=== PATIENT | female | born 1960 ===

== ENCOUNTER 2016-10-03 10:52 | Emergency (ER) | payer OTHER ==
[2016-10-03 10:52] VITALS: BMI 30.1
[2016-10-03 10:58] VITALS: BP 143/91; PULSE 86; RESP 16; TEMP 98.1; O2SAT 97
--- NOTE | 2016-10-03 11:11 | ED PDOC ---
Arrival/HPI - General Chief Complaint: Lower Extremity Problem/Injury Time Seen by Provider: 10/03/16 11:08 Historian: Patient - History of Present Illness Narrative History of Present Illness (Text): 10/03/16 11:30 56 year old female presents to the emergency department with knee pain for the past few months. She states she has undergone multiple imaging studies including MRI here November 2015. She states she is working on obtain insurance for surgical correction. She notes swelling which is intermittent and improves/ worsens. Today she says it is worse than usual causing difficulty walking. Patient ambulated to ER with cane. Denies new injuries or trauma. Denies fever or erythema. Time/Duration: > month Symptom Onset: Gradual Symptom Course: Intermittent Associated Symptoms (Text): None Past Medical History - Provider Review Nursing Documentation Reviewed: Yes - Infectious Disease Hx of Infectious Diseases: None - Tetanus Immunization Tetanus Immunization: Unknown - Cardiac Hx Hypertension: Yes - Pulmonary Hx Asthma: Yes - Neurological Hx Neurological Disorder: No - HEENT Hx HEENT Disorder: No - Renal Hx Renal Disorder: No - Endocrine/Metabolic Hx Endocrine Disorders: No - Hematological/Oncological Hx Blood Disorders: No - Integumentary Hx Dermatological Disorder: No - Musculoskeletal/Rheumatological Hx Arthritis: Yes Other/Comment: KNEE PAIN - Gastrointestinal Hx Gastrointestinal Disorders: No - Genitourinary/Gynecological Hx Genitourinary Disorders: No Other/Comment: ovarian cysts - Psychiatric Hx Psychophysiologic Disorder: Yes Hx Anxiety: Yes Hx Substance Use: No - Surgical History Hx Orthopedic Surgery: Yes (R SHOULDER) - Anesthesia Hx Anesthesia: No Hx Anesthesia Reactions: No Hx Malignant Hyperthermia: No - Suicidal Assessment Feels Threatened In Home Enviroment: No Family/Social History - Physician Review Nursing Documentation Reviewed: Yes Family/Social History: Unknown Family HX Smoking Status: Never Smoked Hx Alcohol Use: No Hx Substance Use: No Allergies/Home Meds Allergies/Adverse Reactions: Allergies No Known Allergies Allergy (Unverified 10/03/16 10:54) Home Medications: Home Meds Medication Instructions Recorded Confirmed Motrin 800 mg PO TID PRN 01/27/15 10/03/16 Lisinopril [Zestril] 10 mg PO DAILY 08/03/16 10/03/16 Review of Systems - Physician Review All systems were reviewed & negative as marked: Yes - Review of Systems Constitutional: absent: Fevers Musculoskeletal: Other (Knee pain) Neurological: absent: Headache, Dizziness Physical Exam - Physical Exam Narrative Physical Exam (Text): Constitutional: No acute distress. Musculoskeletal: Full range of motion of the knee. (+) Effusion. No warmth, no erythema. Vital Signs Reviewed: Yes Vital Signs Temp Pulse Resp BP Pulse Ox 10/03/16 10:55 98.1 F 86 16 143/91 H 97 Temperature: Afebrile Blood Pressure: Normal Pulse: Regular Respiratory Rate: Normal Appearance: Positive for: Well-Appearing, Non-Toxic, Comfortable Pain Distress: None Mental Status: Positive for: Alert and Oriented X 3 Medical Decision Making ED Course and Treatment: Impression: 56 year old female presents to the emergency department with knee pain for the past few months. Progress Notes: 10/03/16 11:20 Toradol IM administered. BRANDON wrap applied. Patient educated on elevation, ice, and rest. Will discharge home. Patient agrees to plan. Stable for discharge. Patient was instructed to follow up with physician/clinic in 1-2 days or return if symptoms worsen or new concerning symptoms arise. - Medication Orders Current Medication Orders: Discontinued Medications Ketorolac Tromethamine (Toradol) 15 mg IM STAT STA Stop: 10/03/16 11:13 Last Admin: 10/03/16 11:27 Dose: 15 mg - Scribe Statement The provider has reviewed the documentation as recorded by the Chery Astorga Provider Scribe Attestation: All medical record entries made by the Scribe were at my direction and personally dictated by me. I have reviewed the chart and agree that the record accurately reflects my personal performance of the history, physical exam, medical decision making, and the department course for this patient. I have also personally directed, reviewed, and agree with the discharge instructions and disposition. Disposition/Present on Arrival - Present on Arrival Any Indicators Present on Arrival: No History of DVT/PE: No History of Uncontrolled Diabetes: No Urinary Catheter: No History of Decub. Ulcer: No History Surgical Site Infection Following: None - Disposition Have Diagnosis and Disposition been Completed?: Yes Diagnosis: Knee pain Disposition: HOME/ ROUTINE Disposition Time: 11:10 Patient Plan: Discharge Condition: STABLE Discharge Instructions (ExitCare): Swollen Knee Joint (ED) Referrals: Mignon Hall APN-C [Advanced Practice Nurse] - Follow up with primary
== END 2016-10-03 11:29 | disposition home or self-care (01) ==
LOC: ED 10:52
DX: M25.562 Pain in left knee (principal); I10 Essential (primary) hypertension
CPT/HCPCS: 96372; 99282; J1885

== ENCOUNTER 2017-11-10 14:08 | Emergency (ER) | payer MEDICAID, OTHER ==
[2017-11-10 14:32] VITALS: BMI 28.3
[2017-11-10 14:33] VITALS: RESP 18; TEMP 98
[2017-11-10] MEDS ORDERED: Oxycodone/Acetaminophen 5/325 mg Tab PO STA (15:08)
--- NOTE | 2017-11-10 15:13 | ED PDOC ---
Arrival/HPI - General Chief Complaint: Upper Extremity Problem/Injury Time Seen by Provider: 11/10/17 15:05 Historian: Patient - History of Present Illness Narrative History of Present Illness (Text): 11/10/17 15:10 pt p/w + 2 weeks onset of waxing and waning right arm discomfort; pt states at times her pain is severe, > 8-9/10; pt states she has this shooting/electrical pain going down from her right neck region/down to her shoulders/to her right arm/hand/fingers; pt also has a history of carpal tunnel syndrome to right hand but felt the pain over the last 2 week over her right arm was worse; pt also expressed 1-2 episodes of right arm weakness during right arm shooting/ electrical pain episodes, pt states no slurr speech/vision changes, no facial changes, no other medical complaints; pt decided to come to emergency department today due to worsening pain/concern for possible TIA/stroke; pt states no fever/chills/sweats, no chest pain/shortness of breath/palpitations, no abd pain, no n/v, no urinary/bowel changes, no incontinence, no fall/trauma/ sick contact, no travel. pt is here for further eval pt's without other complaints. PCP: Dr Oliveira? pt is right hand dominate hx of dizziness/TIA Time/Duration: > week (2 weeks) Symptom Onset: Gradual Severity Level: Severe Activities at Onset: Rest Context: Home Past Medical History - Provider Review Nursing Documentation Reviewed: Yes - Travel History Have you recently traveled outside [place] w/in the past 3 mons?: No - Past History Past History: Non-Contributing - Infectious Disease Hx of Infectious Diseases: None - Tetanus Immunization Tetanus Immunization: Unknown - Reproductive Menopause: Yes Currently : No - Cardiac Hx Cardiac Disorders: Yes Hx Hypertension: Yes - Pulmonary Hx Respiratory Disorders: No - Neurological Hx Neurological Disorder: No - HEENT Hx HEENT Disorder: No - Renal Hx Renal Disorder: No - Endocrine/Metabolic Hx Endocrine Disorders: No - Hematological/Oncological Hx Blood Disorders: No - Integumentary Hx Dermatological Disorder: No - Musculoskeletal/Rheumatological Hx Musculoskeletal Disorders: Yes Hx Back Pain: Yes Other/Comment: KNEE PAIN. Carpal tunnel - Gastrointestinal Hx Gastrointestinal Disorders: Yes Hx Hemorrhoids: Yes - Genitourinary/Gynecological Hx Genitourinary Disorders: No - Psychiatric Hx Psychophysiologic Disorder: No Hx Substance Use: No - Surgical History Hx Tubal Ligation: Yes Other/Comment: RIGHT SHOULDER SURGERY - Anesthesia Hx Anesthesia: Yes Hx Anesthesia Reactions: No - Suicidal Assessment Feels Threatened In Home Enviroment: No Family/Social History - Physician Review Nursing Documentation Reviewed: Yes Family/Social History: No Known Family HX Smoking Status: Never Smoked Hx Alcohol Use: No Hx Substance Use: No Hx Substance Use Treatment: No Allergies/Home Meds Allergies/Adverse Reactions: Allergies No Known Allergies Allergy (Verified 03/14/17 08:12) Home Medications: Home Meds Medication Instructions Recorded Confirmed Lisinopril/Hydrochlorothiazide 1 tab PO DAILY 03/14/17 11/10/17 [Lisinopril-Hydrochlorothiazide 25 mg-20 mg] Pravastatin Sodium [Pravachol] 20 mg PO DAILY 03/14/17 11/10/17 Aspirin [Aspirin Chewable] 1 tab PO DAILY 11/10/17 11/10/17 Paradox-3S/Dha/Epa/Fish Oil [Fish 2 cap PO BID 11/10/17 11/10/17 Oil Paradox-3 Softgel] Review of Systems - Review of Systems Constitutional: Normal Eyes: Normal. absent: Vision Changes ENT: Normal. absent: Hearing Changes Respiratory: Normal. absent: SOB, Cough Cardiovascular: Normal. absent: Chest Pain Gastrointestinal: Normal. absent: Abdominal Pain, Nausea, Vomiting Genitourinary Female: Normal Musculoskeletal: Other (right neck pain, right arm pain, no trauma) Skin: Normal Neurological: Focal Weakness. absent: Dizziness, Gait Changes, Speech Changes, Facial Droop, Disequilibrium, Seizure Endocrine: Normal Hemo/Lymphatic: Normal Psychiatric: Normal Physical Exam - Physical Exam Narrative Physical Exam (Text): 11/10/17 1455 General: alert/awake, GCS = 15, oriented x 3, resting in bed, uncomfortable, cooperative, interactive; mild distress due to right arm pain Head: NC/AT EYE: PERRLA, EOMI, sclera anicteric, no nystagmus, no photophobia; visual field intact b/l Facial: WNL Oral: uvula/tongue are midline, no exudate/lesions, no drooling/stridor, no dysphonia; intact dentitions; moist oral mucosa NECK: intact ROM, no midline tenderness, no nuchal rigidity, no meningeal signs ; no step off Chest: CTA b/l, no w/r/r; no tachypenia, no accessory muscle use noted Cardiac: +S1, +S2, no m/r/r, no tachycardia Abdominal: +BS, soft/nd/nt, well nourished patient; no masses/rebound/guarding/ rigidity; no stern's sign, no mcburney's point tenderness Extremities: intact ROM, strength 5/5 grossly intact in all limbs, neurovasc intact b/l; + ambulatory; reflex +2/2; no pitting edema/swelling b/l; no Cricket' s sign b/l BACK: no step off, no midline tenderness, NO crepitus, no gross deformities noted; Intact ROM SKIN: cap refill < 1 sec, no ulcerations, no petechiae, no rashes NEURO: CNII-XII WNL, no facial asymmetries, no slurr speech, oriented x 3; F- Nose WNL NIH stroke scale ~ 0 Psych: normal insight, normal affect; follows command with ease Vital Signs Reviewed: Yes Vital Signs Temp Pulse Resp BP Pulse Ox 11/10/17 14:33 98.0 F 83 18 118/68 100 Temperature: Afebrile Blood Pressure: Normal Pulse: Regular Respiratory Rate: Normal Appearance: Positive for: Well-Appearing, Non-Toxic, Uncomfortable. No: Comfortable, Ill-Appearing, Unkept Pain Distress: Mild Mental Status: Positive for: Alert and Oriented X 3 - Systems Exam Head: Present: Atraumatic, Normocephalic Medical Decision Making ED Course and Treatment: 11/10/17 15:05 Impression: right arm pain x 2 weeks, no trauma i have consider all the differential diagnosis regarding pt's chief medical complaints/clinical findings, including but are not limited to: right arm pain x 2 weeks A/P: right arm pain x 2 weeks - ct - pain control - supportive care - observe/reevaluation 430pm pt is doing well, resting in bed comfortably pt is awaiting her diagnostic results 11/10/17 1655 vital signs remained stable NIH stroke scale ~ 0 pt remained comfortable pt is not in any distress pt is made aware of her medical results pt is encouraged no heavy lifting, no repetitive movements pt is encouraged outpt follow up pt will be discharged home Re-evaluation Time: 17:05 Reassessment Condition: Improved - RAD Interpretation Narrative RAD Interpretations (Text): 11/10/17 16:49 PROCEDURE: CT Cervical Spine without contrast HISTORY: R arm numb/tingling x 2 wks, hx of disc hernia/TIA COMPARISON: None available. TECHNIQUE: Axial computed tomography images were obtained of the cervical spine without the use of intravenous contrast. Coronal and sagittal reformatted images were created and reviewed. Radiation dose: Total exam DLP = 596 mGy-cm. This CT exam was performed using one or more of the following dose reduction techniques: Automated exposure control, adjustment of the mA and/or kV according to patient size, and/or use of iterative reconstruction technique. FINDINGS: VERTEBRAE: No fracture. Normal alignment. No destructive bony lesion. DISCS/SPINAL CANAL/NEURAL FORAMINA: No significant central canal or neural foraminal stenosis. Severe facet arthropathy on the left at C3-4. Severe foraminal stenosis. C4-5. Severe facet arthropathy on the left with severe foraminal stenosis. Left-sided uncovertebral osteophyte. C5-6 mild foraminal stenosis on the right. C6-7 is unremarkable. Right-sided facet arthropathy at C7-T1 with right-sided foraminal stenosis PARASPINAL SOFT TISSUES: Unremarkable. OTHER FINDINGS: None. IMPRESSION: Disc and facet degeneration with foraminal stenosis at multiple levels as described above. PROCEDURE: CT HEAD WITHOUT CONTRAST. HISTORY: hx of tia; 2 weeks right arm numb/tingling COMPARISON: 08/03/2016 TECHNIQUE: Axial computed tomography images were obtained through the head/brain without intravenous contrast. Radiation dose: Total exam DLP = 873 mGy-cm. This CT exam was performed using one or more of the following dose reduction techniques: Automated exposure control, adjustment of the mA and/or kV according to patient size, and/or use of iterative reconstruction technique. FINDINGS: HEMORRHAGE: No intracranial hemorrhage. BRAIN: No mass effect or edema. Chronic microvascular changes. VENTRICLES: Unremarkable. No hydrocephalus. CALVARIUM: Unremarkable. PARANASAL SINUSES: Unremarkable as visualized. No significant inflammatory changes. MASTOID AIR CELLS: Unremarkable as visualized. No inflammatory changes. OTHER FINDINGS: None. IMPRESSION: No acute findings Radiology Orders: 11/10/17 15:07 CERVICAL SPINE W/O CONTRAST [CT] Stat 11/10/17 15:08 HEAD W/O CONTRAST [CT] Stat Can Tender: Radiologist - Medication Orders Current Medication Orders: Discontinued Medications Diazepam (Valium) 5 mg PO ONCE ONE PRN Reason: Protocol Stop: 11/10/17 15:10 Last Admin: 11/10/17 15:26 Dose: 5 mg Ketorolac Tromethamine (Toradol) 30 mg IM STAT STA Stop: 11/10/17 15:09 Last Admin: 11/10/17 15:26 Dose: 30 mg Oxycodone/Acetaminophen (Percocet 5/325 Mg Tab) 1 tab PO STAT STA Stop: 11/10/17 15:09 Last Admin: 11/10/17 15:26 Dose: 1 tab Disposition/Present on Arrival - Present on Arrival Any Indicators Present on Arrival: No History of DVT/PE: No History of Uncontrolled Diabetes: No Urinary Catheter: No History of Decub. Ulcer: No History Surgical Site Infection Following: None - Disposition Have Diagnosis and Disposition been Completed?: Yes Diagnosis: Right arm pain, Cervical radiculopathy, Cervical herniated disc Disposition: HOME/ ROUTINE Disposition Time: 17:00 Patient Plan: Discharge Condition: STABLE Discharge Instructions (ExitCare): Radiculopathy, Herniated Disc (DC) Print Language: DANISH Additional Instructions: Make sure to see your doctor in 1-2 days DRINK PLENTY OF FLUIDS take your medications as prescribed AVOID heavy lifting/repetitive exercises RETURN TO ED IF worse pain, cant breath, persistent vomiting, high fever >101- 102 for hours, altered behavior, slurr speech, facial changes, focal weakness ( arm/leg or both), unable to urinate, heavy/persistent bleeding, passing out, chest pain, or other medical emergencies Prescriptions: diaZEpam [Valium] 5 mg PO TID PRN #10 tab PRN Reason: Muscle Spasm Ibuprofen [Motrin] 600 mg PO QID PRN #30 tab PRN Reason: Pain, Mild (1-3) oxyCODONE/Acetaminophen [Percocet 5/325 mg Tab] 1 ea PO TID PRN #10 tab PRN Reason: Pain, Moderate (4-7) Referrals: Huong Oliveira MD [Primary Care Provider] - Follow up with primary Dinora Thibodeaux MD [Staff Provider] - Follow up with primary Jean Rosa MD [Staff Provider] - Follow up with primary Forms: [employer] ([place]
--- NOTE | 2017-11-10 15:57 | CT ---
PROCEDURE: CT HEAD WITHOUT CONTRAST. HISTORY: hx of tia; 2 weeks right arm numb/tingling COMPARISON: 08/03/2016 TECHNIQUE: Axial computed tomography images were obtained through the head/brain without intravenous contrast. Radiation dose: Total exam DLP = 873 mGy-cm. This CT exam was performed using one or more of the following dose reduction techniques: Automated exposure control, adjustment of the mA and/or kV according to patient size, and/or use of iterative reconstruction technique. FINDINGS: HEMORRHAGE: No intracranial hemorrhage. BRAIN: No mass effect or edema. Chronic microvascular changes. VENTRICLES: Unremarkable. No hydrocephalus. CALVARIUM: Unremarkable. PARANASAL SINUSES: Unremarkable as visualized. No significant inflammatory changes. MASTOID AIR CELLS: Unremarkable as visualized. No inflammatory changes. OTHER FINDINGS: None. IMPRESSION: No acute findings
--- NOTE | 2017-11-10 16:03 | CT ---
PROCEDURE: CT Cervical Spine without contrast HISTORY: R arm numb/tingling x 2 wks, hx of disc hernia/TIA COMPARISON: None available. TECHNIQUE: Axial computed tomography images were obtained of the cervical spine without the use of intravenous contrast. Coronal and sagittal reformatted images were created and reviewed. Radiation dose: Total exam DLP = 596 mGy-cm. This CT exam was performed using one or more of the following dose reduction techniques: Automated exposure control, adjustment of the mA and/or kV according to patient size, and/or use of iterative reconstruction technique. FINDINGS: VERTEBRAE: No fracture. Normal alignment. No destructive bony lesion. DISCS/SPINAL CANAL/NEURAL FORAMINA: No significant central canal or neural foraminal stenosis. Severe facet arthropathy on the left at C3-4. Severe foraminal stenosis. C4-5. Severe facet arthropathy on the left with severe foraminal stenosis. Left-sided uncovertebral osteophyte. C5-6 mild foraminal stenosis on the right. C6-7 is unremarkable. Right-sided facet arthropathy at C7-T1 with right-sided foraminal stenosis PARASPINAL SOFT TISSUES: Unremarkable. OTHER FINDINGS: None. IMPRESSION: Disc and facet degeneration with foraminal stenosis at multiple levels as described above.
[2017-11-10 17:07] VITALS: BP 116/70; PULSE 62; O2SAT 99
== END 2017-11-10 17:09 | disposition home or self-care (01) ==
LOC: ED 14:08
DX: M54.12 Radiculopathy, cervical region (principal); M50.20 Other cervical disc displacement, unspecified cervical region; M79.601 Pain in right arm; I10 Essential (primary) hypertension
CPT/HCPCS: 70450; 72125; 96372; 99284; J1885

== ENCOUNTER 2017-12-01 17:07 | Emergency (ER) | payer OTHER ==
[2017-12-01 17:08] VITALS: BMI 28.3
--- NOTE | 2017-12-01 17:30 | ED PDOC ---
Arrival/HPI - General Time Seen by Provider: 12/01/17 17:11 Historian: Patient - History of Present Illness Narrative History of Present Illness (Text): 12/01/17 17:20 Patient is not in the ED room yet. 12/01/17 17:40 This 57 yo female presents to this with multiple complains. Patient stated she has been getting bruises for 2 days. She also noted left arm pain since yesterday. patient has been feeling fatigue. Patient denies sob, cp, abdominal pain, dizziness, fever, CAT, or abnormal gait. Time/Duration: Other (see hpi) Context: Home Past Medical History - Provider Review Nursing Documentation Reviewed: Yes - Past History Past History: Non-Contributing - Infectious Disease Hx of Infectious Diseases: None - Tetanus Immunization Tetanus Immunization: Unknown - Cardiac Hx Cardiac Disorders: Yes Hx Hypertension: Yes - Pulmonary Hx Respiratory Disorders: No - Neurological Hx Neurological Disorder: No - HEENT Hx HEENT Disorder: No - Renal Hx Renal Disorder: No - Endocrine/Metabolic Hx Endocrine Disorders: No - Hematological/Oncological Hx Blood Disorders: No - Integumentary Hx Dermatological Disorder: No - Musculoskeletal/Rheumatological Other/Comment: KNEE PAIN - Gastrointestinal Hx Gastrointestinal Disorders: Yes Hx Hemorrhoids: Yes - Genitourinary/Gynecological Hx Genitourinary Disorders: No - Psychiatric Hx Psychophysiologic Disorder: No Hx Substance Use: No - Surgical History Hx Tubal Ligation: Yes Other/Comment: RIGHT SHOULDER SURGERY - Anesthesia Hx Anesthesia: Yes Hx Anesthesia Reactions: No - Suicidal Assessment Feels Threatened In Home Enviroment: No Family/Social History - Physician Review Nursing Documentation Reviewed: Yes Family/Social History: Other (noncontributory) Smoking Status: Never Smoked Hx Alcohol Use: No Hx Substance Use: No Hx Substance Use Treatment: No Allergies/Home Meds Allergies/Adverse Reactions: Allergies No Known Allergies Allergy (Verified 12/01/17 17:37) Home Medications: Home Meds Medication Instructions Recorded Confirmed Lisinopril/Hydrochlorothiazide 1 tab PO DAILY 03/14/17 12/01/17 [Lisinopril-Hydrochlorothiazide 25 mg-20 mg] Pravastatin Sodium [Pravachol] 20 mg PO DAILY 03/14/17 12/01/17 Aspirin [Aspirin Chewable] 1 tab PO DAILY 11/10/17 12/01/17 [place]irth-3S/Dha/Epa/Fish Oil [Fish 2 cap PO BID 11/10/17 12/01/17 Oil [place]-3 Softgel] Review of Systems - Review of Systems Constitutional: Fatigue. absent: Weight Change, Fevers Eyes: Normal. absent: Vision Changes ENT: Normal. absent: Sore Throat Respiratory: Normal. absent: SOB, Cough, Sputum, Wheezing Cardiovascular: Normal. absent: Chest Pain, Palpitations, Edema, Calf Pain, EATON , Orthopnea, Syncope Gastrointestinal: Normal. absent: Abdominal Pain, Nausea, Vomiting Genitourinary Female: Normal. absent: Dysuria, Frequency, Hematuria Musculoskeletal: Other ((+) left arm pain (+) b/l UE brusies) Skin: Normal. absent: Rash Neurological: Normal. absent: Headache, Dizziness, Focal Weakness, Gait Changes Endocrine: Normal Hemo/Lymphatic: Normal Psychiatric: Normal Physical Exam Vital Signs Temp Pulse Resp BP Pulse Ox 12/01/17 17:37 98.1 F 75 17 136/88 100 Temperature: Afebrile Blood Pressure: Normal Pulse: Regular Respiratory Rate: Normal Appearance: Positive for: Well-Appearing, Non-Toxic, Comfortable Pain Distress: None Mental Status: Positive for: Alert and Oriented X 3 - Systems Exam Head: Present: Atraumatic, Normocephalic Pupils: Present: PERRL Extroacular Muscles: Present: EOMI Conjunctiva: Present: Normal Mouth: Present: Moist Mucous Membranes, Normal Lips, Normal Tounge, Normal Teeth , Other (No oropharyngeal lesion or petechia). No: Drooling, Trismus Pharnyx: Present: Normal. No: ERYTHEMA, EXUDATE, TONSILS ENLARGED Neck: Present: Normal Range of Motion, Trachea Midline. No: Meningeal Signs, MIDLINE TENDERNESS, Paraspinal Tenderness, Lymphadenopathy Respiratory/Chest: Present: Clear to Auscultation, Good Air Exchange. No: Respiratory Distress, Accessory Muscle Use, Wheezes, Retracting, Rhonchi, Tachypneic Cardiovascular: Present: Regular Rate and Rhythm, Normal S1, S2. No: Murmurs Abdomen: No: Tenderness, Distention, Peritoneal Signs, Rebound, Guarding Back: Present: Normal Inspection. No: CVA Tenderness, Midline Tenderness, Paraspinal Tenderness, Pain with Leg Raise Upper Extremity: Present: Normal ROM, NORMAL PULSES, Neurovascularly Intact, Other (one ecchymosis changes right and left arm. There is one ecchymosis right thigh. No tenderness. no erythema. No abscess. no swelling). No: Cyanosis, Edema, Tenderness, Swelling, Erythema, Capillary Refill < 2s Lower Extremity: Present: Normal Inspection. No: Edema Neurological: Present: GCS=15, CN II-XII Intact, Speech Normal, Motor Func Grossly Intact, Normal Sensory Function, Normal Cerebellar Funct, Gait Normal, Memory Normal Skin: Present: Warm, Dry, Normal Color. No: Rashes Psychiatric: Present: Alert, Oriented x 3, Normal Insight, Normal Concentration Medical Decision Making ED Course and Treatment: 12/01/17 20:30 Leaving Against Medical Advice (AMA): This patient is choosing to leave against medical advice. The EP has personally explained to the pt that choosing to do so may result in permanent bodily harm or . The EP discussed at great length that without further evaluation and monitoring there may be unforeseen circumstances and/or deterioration causing permanent bodily harm or as a result of their choice. The pt verbalized these risks back to the physician in laymans terms. The pt is alert, oriented, and shows the mental capacity to make clear decisions regarding the pts health care at this time. The pt continues to wish to leave against medical advice. In light of the pts decision to leave AMA, follow-up has been recommended and the pt is aware of the importance of following up as instructed. The pt has been advised that they should return to the ED immediately if they change their mind at any time, or if thier condition begins to change or worsen in any way. - Lab Interpretations Lab Results: 12/01/17 18:47 12/01/17 18:47 Lab Results 12/01/17 18:47: Urine Color Straw, Urine Appearance Clear, Urine pH 7.5, Ur Specific [place] 1.010, Urine Protein Negative, Urine Glucose (UA) Negative, Urine Ketones Negative, Urine Blood Negative, Urine Nitrate Negative, Urine Bilirubin Negative, Urine Urobilinogen 0.2, Ur Leukocyte Esterase Small H, Urine RBC Negative, Urine WBC 0 - 2, Ur Epithelial Cells 0 - 2, Urine Bacteria None 12/01/17 18:47: Sodium 143, Chloride 105, Potassium 3.9, Carbon Dioxide 28, Anion Gap 14, BUN 14, Creatinine 0.6 L, Est GFR ( Amer) > 60, Est GFR ( Non-Af Amer) > 60, Random Glucose 94, Calcium 9.4, Magnesium 2.1, Total Bilirubin 0.6, AST 26, ALT 33, Alkaline Phosphatase 64, Lactate Dehydrogenase 474, Total Creatine Kinase 140, Troponin I < 0.01, Total Protein 7.2, Albumin 4.0, Globulin 3.2, Albumin/Globulin Ratio 1.3 12/01/17 18:47: pO2 39, VBG pH 7.38, VBG pCO2 49.0, VBG HCO3 29.0 H, VBG Total CO2 30.5 H, VBG O2 Sat (Calc) 78.2 H, VBG Base Excess 3.0 H, VBG Potassium 3.8, Sodium 140.0, Chloride 107.0, Glucose 95, Lactate 0.9, FiO2 21.0, Venous Blood Potassium 3.8 12/01/17 18:47: PT 10.4, INR 0.91 L, APTT 26.9, D-Dimer, Quantitative < 200 12/01/17 18:47: WBC 5.4, RBC 4.06, Hgb 12.4, Hct 37.1, MCV 91.4, MCH 30.5, MCHC 33.4, RDW 12.1, Plt Count 319, MPV 9.5, Gran % 45.8 L, Lymph % (Auto) 43.9 H, [place] % (Auto) 8.6 H, Eos % (Auto) 1.5, Baso % (Auto) 0.2, Gran # 2.47, Lymph # ( Auto) 2.4, [place] # (Auto) 0.5, Eos # (Auto) 0.1, Baso # (Auto) 0.01 I have reviewed the lab results: Yes Interpretation: No clinic. lab abnormalty - RAD Interpretation Narrative RAD Interpretations (Text): 12/01/17 20:13 FINDINGS: LUNGS: No active pulmonary disease. PLEURA: No significant pleural effusion identified. No pneumothorax apparent. CARDIOVASCULAR: Cardiomediastinal silhouette stably enlarged. OSSEOUS STRUCTURES: Unchanged. VISUALIZED UPPER ABDOMEN: Normal. OTHER FINDINGS: None. IMPRESSION: No active disease. Radiology Orders: 12/01/17 17:47 CHEST TWO VIEWS (PA/LAT) [RAD] Stat Disposition/Present on Arrival - Present on Arrival Any Indicators Present on Arrival: No History of DVT/PE: No History of Uncontrolled Diabetes: No Urinary Catheter: No History Surgical Site Infection Following: None - Disposition Have Diagnosis and Disposition been Completed?: Yes Diagnosis: Chest pain Disposition: AGAINST MEDICAL ADVICE Disposition Time: 20:31 Discharge Instructions (ExitCare): Chest Pain (ED) Prescriptions: Cephalexin [cephalexin] 500 mg PO BID #10 cap Referrals: Huong Oliveira MD [Primary Care Provider] - Follow up with primary
[2017-12-01 17:43] VITALS: O2SAT 100
--- NOTE | 2017-12-01 18:30 | RAD ---
Date of service: 12/01/2017 HISTORY: cough COMPARISON: Chest radiograph dated 08/02/2016. TECHNIQUE: Chest PA and lateral FINDINGS: LUNGS: No active pulmonary disease. PLEURA: No significant pleural effusion identified. No pneumothorax apparent. CARDIOVASCULAR: Cardiomediastinal silhouette stably enlarged. OSSEOUS STRUCTURES: Unchanged. VISUALIZED UPPER ABDOMEN: Normal. OTHER FINDINGS: None. IMPRESSION: No active disease.
[2017-12-01 19:06] LABS: BASO # 0.01 K/mm3 (0.0-2.0); BASO % 0.2 % (0.0-3.0); EOS # 0.1 (0.0-0.7); EOS % 1.5 % (1.5-5.0); GRAN # 2.47 (1.4-6.5); GRAN % 45.8 % (50.0-68.0); HEMOGLOBIN 12.4 g/dL (12.0-16.0); LYMPH # 2.4 (1.2-3.4); LYMPH % 43.9 % (22.0-35.0); MEAN CELL VOLUME 91.4 fl (80.0-105.0); MEAN CORPUSCULAR HEMOGLOBIN 30.5 pg (25.0-35.0); MEAN CORPUSCULAR HGB CONC 33.4 g/dl (31.0-37.0); MEAN PLATELET VOLUME 9.5 fl (7.0-11.0); MONO # 0.5 (0.1-0.6); MONO % 8.6 % (1.0-6.0); RBC 4.06 10^6/uL (3.5-6.1); RED CELL DISTRIBUTION WIDTH 12.1 % (11.5-14.5); WHITE BLOOD COUNT 5.4 10^3/ul (4.5-11.0)
[2017-12-01 19:07] LABS: VENOUS BLOOD GAS PO2 39 mm/Hg (30-55); VENOUS BLOOD PH 7.38 (7.32-7.43)
[2017-12-01 19:14] LABS: PH,URINE 7.5 (4.7-8.0); URINE BILIRUBIN NEGATIVE (NEGATIVE); URINE BLOOD NEGATIVE (NEGATIVE); URINE GLUCOSE (UA) NEGATIVE (NEGATIVE); URINE LEUKOCYTE ESTERASE SMALL Leu/uL (NEGATIVE); URINE PROTEIN NEGATIVE mg/dL (<30 mg/dL); URINE UROBILINOGEN 0.2 E.U./dL (<1 E.U./dL)
[2017-12-01 19:16] LABS: D DIMER < 200 ng/mL (0-243); INR 0.91 (0.93-1.08); PARTIAL THROMBOPLASTIN TIME 26.9 Seconds (25.1-36.5); PROTHROMBIN TIME 10.4 SECONDS (9.4-12.5)
[2017-12-01 19:20] LABS: URINE APPEARANCE CLEAR (CLEAR); URINE COLOR STRAW (YELLOW)
[2017-12-01 19:28] LABS: BLOOD UREA NITROGEN 14 mg/dL (7-21); CALCIUM 9.4 mg/dL (8.4-10.5); GFR AFRICAN-AMERICAN > 60; GFR NON-AFRICAN AMERICAN > 60
[2017-12-01 19:29] LABS: ALB/GLOB RATIO 1.3 (1.1-1.8); ALT/SGPT 33 U/L (7-56); AST/SGOT 26 U/L (14-36)
[2017-12-01 19:30] LABS: URINE EPITHELIAL CELLS 0 - 2 /hpf (0-5); URINE RBC NEGATIVE /hpf (0-2); URINE WBC 0 - 2 /hpf (0-6)
[2017-12-01 19:31] LABS: TROPONIN I < 0.01 ng/mL
[2017-12-01 21:00] VITALS: RESP 18
[2017-12-01 21:03] VITALS: BP 130/72; PULSE 70; TEMP 98.2
--- NOTE | 2017-12-02 10:06 | CARD ---
APPROVED REPORT Date of service: 12/01/2017 EKG Measurement Heart [id number] <Conclusion> Normal sinus rhythm Normal ECG
== END 2017-12-01 21:03 | disposition left against medical advice (07) ==
LOC: ED 17:07
DX: R07.9 Chest pain, unspecified (principal); I10 Essential (primary) hypertension

== ENCOUNTER 2018-05-05 13:23 | Emergency (ER) | payer OTHER ==
[2018-05-05 13:24] VITALS: BMI 28.3
[2018-05-05 13:44] VITALS: BP 132/88; PULSE 77; RESP 18; TEMP 98.2; O2SAT 98
--- NOTE | 2018-05-05 14:01 | ED PDOC ---
Arrival/HPI - General Chief Complaint: Upper Extremity Problem/Injury Time Seen by Provider: 05/05/18 13:48 - History of Present Illness Narrative History of Present Illness (Text): 05/05/18 13:59 A 57 year old female, whose past medical history includes cervical disease, hypertension, and a remote history of TIA, presents to the emergency department complaining of left arm and neck pain since last night. Patient denies any trauma. Patient denies any fever, chills, shortness of breath, chest pain, diarrhea, nausea, vomiting, urinary symptoms, back pain, headache, dizziness, or any other complaints. PMD: Dr. Mcallister Time/Duration: Other (last night) Symptom Onset: Gradual Activities at Onset: Light Context: Home Past Medical History - Provider Review Nursing Documentation Reviewed: Yes - Past History Past History: Non-Contributing - Infectious Disease Hx of Infectious Diseases: None - Tetanus Immunization Tetanus Immunization: Unknown - Reproductive Menopause: Yes - Cardiac Hx Cardiac Disorders: Yes Hx Hypertension: Yes - Pulmonary Hx Respiratory Disorders: No - Neurological Hx Transient Ischemic Attacks (TIA): Yes - HEENT Hx HEENT Disorder: No - Renal Hx Renal Disorder: No - Endocrine/Metabolic Hx Endocrine Disorders: No - Hematological/Oncological Hx Blood Disorders: No - Integumentary Hx Dermatological Disorder: No - Musculoskeletal/Rheumatological Other/Comment: KNEE PAIN - Gastrointestinal Hx Gastrointestinal Disorders: Yes Hx Hemorrhoids: Yes - Genitourinary/Gynecological Hx Genitourinary Disorders: No - Psychiatric Hx Psychophysiologic Disorder: No Hx Substance Use: No - Surgical History Hx Tubal Ligation: Yes Other/Comment: RIGHT SHOULDER SURGERY - Anesthesia Hx Anesthesia: Yes Hx Anesthesia Reactions: No - Suicidal Assessment Feels Threatened In Home Enviroment: No Family/Social History - Physician Review Nursing Documentation Reviewed: Yes Family/Social History: No Known Family HX Smoking Status: Never Smoked Hx Alcohol Use: No Hx Substance Use: No Hx Substance Use Treatment: No Allergies/Home Meds Allergies/Adverse Reactions: Allergies No Known Allergies Allergy (Verified 12/01/17 17:37) Home Medications: Home Meds Medication Instructions Recorded Confirmed Lisinopril/Hydrochlorothiazide 1 tab PO DAILY 03/14/17 05/05/18 [Lisinopril-Hydrochlorothiazide 25 mg-20 mg] Pravastatin Sodium [Pravachol] 20 mg PO DAILY 03/14/17 05/05/18 Aspirin [Aspirin Chewable] 1 tab PO DAILY 11/10/17 05/05/18 Naproxen 500 mg PO BID 05/05/18 05/05/18 Review of Systems - Physician Review All systems were reviewed & negative as marked: Yes - Review of Systems Constitutional: absent: Fevers, Night Sweats Respiratory: absent: SOB Cardiovascular: absent: Chest Pain Gastrointestinal: absent: Diarrhea, Nausea, Vomiting Genitourinary Female: absent: Urine Output Changes Musculoskeletal: Neck Pain, Other (Left arm pain). absent: Back Pain Neurological: absent: Headache, Dizziness Physical Exam Vital Signs Reviewed: Yes Vital Signs Temp Pulse Resp BP Pulse Ox 05/05/18 13:42 98.2 F 77 18 132/88 98 Temperature: Afebrile Blood Pressure: Normal Pulse: Regular Respiratory Rate: Normal Appearance: Positive for: Well-Appearing, Non-Toxic Mental Status: Positive for: Alert and Oriented X 3 - Systems Exam Head: Present: Atraumatic, Normocephalic Pupils: Present: PERRL Extroacular Muscles: Present: EOMI Conjunctiva: Present: Normal Neck: Present: Other (+left sided cervical tenderness to palpation) Respiratory/Chest: Present: Clear to Auscultation, Good Air Exchange. No: Respiratory Distress, Accessory Muscle Use Cardiovascular: Present: Regular Rate and Rhythm, Normal S1, S2. No: Murmurs Abdomen: No: Tenderness, Distention, Peritoneal Signs Back: Present: Normal Inspection Upper Extremity: Present: Normal Inspection. No: Cyanosis, Edema Lower Extremity: Present: Normal Inspection. No: Edema Neurological: Present: GCS=15, CN II-XII Intact, Speech Normal Skin: Present: Warm, Dry, Normal Color. No: Rashes Psychiatric: Present: Alert, Oriented x 3, Normal Insight, Normal Concentration Medical Decision Making ED Course and Treatment: 05/05/18 14:03 Impression: 57 year old female presenting to the emergency department for left arm and neck pain. noted h/o of cervial radiculopahty and similar presentation in past. Plan: -- Toradol -- Reassess and disposition Prior Visits: Notes and results from previous visits were reviewed. Progress Notes: 05/05/18 15:[address] with cervcial disease. no trauma. pt well appearing in nad. suspect cervical radicuolpathy. - Medication Orders Current Medication Orders: Discontinued Medications Ketorolac Tromethamine (Toradol) 30 mg IM STAT STA Stop: 05/05/18 13:56 - Scribe Statement The provider has reviewed the documentation as recorded by the Chery Cid All medical record entries made by the Scribe were at my direction and personally dictated by me. I have reviewed the chart and agree that the record accurately reflects my personal performance of the history, physical exam, medical decision making, and the department course for this patient. I have also personally directed, reviewed, and agree with the discharge instructions and disposition. Disposition/Present on Arrival - Present on Arrival Any Indicators Present on Arrival: No History of DVT/PE: No History of Uncontrolled Diabetes: No Urinary Catheter: No History of Decub. Ulcer: No History Surgical Site Infection Following: None - Disposition Have Diagnosis and Disposition been Completed?: Yes Diagnosis: Arm pain, Neck pain Disposition: HOME/ ROUTINE Disposition Time: 13:00 Condition: STABLE Discharge Instructions (ExitCare): Radiculopathy, Neck Pain Additional Instructions: follow up with your doctor/clinic and spcialist. you may need further workup as an outpatient. return to er with any worsening symptoms or concerns. Prescriptions: RX: Naproxen 500 mg PO BID PRN #14 tablet PRN Reason: Pain, Mild (1-3) Referrals: Yue Mcallister MD [Primary Care Provider] - Follow up with primary Forms: [employer] ([place])
== END 2018-05-05 14:42 | disposition home or self-care (01) ==
LOC: ED 13:23
DX: M54.2 Cervicalgia (principal); M79.602 Pain in left arm
CPT/HCPCS: 96372; 99282; J1885